=== PATIENT | male | born 1990 | race Two or more races ===

== ENCOUNTER 2020-04-15 20:53 | Emergency (ER) | payer BC, OTHER ==
[~2020-04-15] VITALS: Ht 165.1 cm; Wt 75.6 kg
--- NOTE | 2020-04-15 21:17 | NUR ---
patient in bed resting conversing with staff. irrigation to R ear attempted x2 and foreign body increasing in size. patient c/o dizziness post irrigation. [employer] notified. patient resting in bed with safety maintained. will continue to monitor.
[2020-04-15 21:28] VITALS: BP 102/65
--- NOTE | 2020-04-15 21:50 | NUR ---
discharge instructions reviewed with patient. answered all questions patient had regarding any worsening symptoms. instructed referal to [facility] or back to ER if worsening s/s and these were reviewed with patient. in NAD. dizziness subsided. gait steady. balance normal.
--- NOTE | 2020-04-15 21:51 | NUR ---
all personal belongings with patient on dc
== END 2020-04-15 21:56 | disposition home or self-care (01) ==
LOC: ED 21:54
DX: T16.1XXA Foreign body in right ear, initial encounter (principal); H60.501 Unspecified acute noninfective otitis externa, right ear; X58.XXXA Exposure to other specified factors, initial encounter; Y93.89 Activity, other specified; Y92.89 Other specified places as the place of occurrence of the external cause; Y99.8 Other external cause status
CPT/HCPCS: 69200; 99284